=== PATIENT | male | born 1970 | race Two or more races ===

== ENCOUNTER 2024-11-05 12:21 | Emergency (ER) | payer SELFPAY ==
[2024-11-05 12:36] VITALS: BP 156/104; PULSE 154; RESP 24; TEMP 38.1; O2SAT 97
--- NOTE | 2024-11-05 12:46 | PD.EDMEDCL ---
ED Medical Clearance RME/HPI General Chief complaint: Medical Clearance Stated complaint: SNF CLEARANCE Time Seen by Provider: 11/05/24 12:25 Arrival date/time: 11/05/24 12:21 Mode of arrival: other ([facility] department) Limitations: language barrier and other (Agitation, refusal to answer questions) RME / HPI RME / HPI Narrative: 54-year-old male present via the [facility]'s department for a medical clearance due to a heart rate of 160 and a blood pressure of 186/120. These vital signs were obtained after a struggle with approximately 8 officers to get him into the booking area of the senior living. He denies taking any medications for his blood pressure. Apparently patient admitted to officers about his cocaine abuse however officers mention they also found methamphetamine. When asked if the patient has chest pain or shortness of breath, he refuses to answer. Related Information Allergies Allergy/AdvReac Type Severity Reaction Status Date / Time No Known Allergies Allergy Verified 11/05/24 12:28 Review of Systems Review of Systems Systems Reviewed: All systems reviewed, normal except as documented Past Medical History Past Medical History CARDIAC: Negative Congestive Heart Failure RESPIRATORY: Negative Chronic Obstructive Pulmonary Disease (COPD) GENITOURINARY: Negative Renal Disease ENDOCRINE: Negative Diabetes Mellitus Type 1 or Diabetes Mellitus Type 2 Social History SMOKING STATUS: Current some day smoker ED Exam Narrative Physical exam: Alert, agitated 54-year-old male, sitting in wheelchair with handcuffs behind his back as well as leg shackles. Appears disheveled and diaphoretic. Tachycardic at 154, blood pressure 156/104, respirations 24, temp 100.6, O2 sat 97% on room air. Lungs are clear General Limitations: Present language barrier and other (Agitation, refusal to answer questions) General appearance: Present alert Course Quality Measures none Orders Category Date Time Status Ship'S Pilot Q4H START 00 Care 11/05/24 13:04 Active LORazepam [Ativan Inj] Med 11/05/24 13:31 Discontinued 2 mg IM X1 ONE LORazepam [Ativan] Med 11/05/24 13:17 Discontinued 1 mg SL X1 ONE Vital Signs Vital signs: Vital Signs Temperature 100.6 F H 11/05/24 12:36 Pulse Rate 154 H 11/05/24 12:36 Respiratory Rate 24 H 11/05/24 12:36 Blood Pressure 156/104 H 11/05/24 12:36 Pulse Oximetry (%) 97 11/05/24 12:36 Oxygen Delivery Method Room Air 11/05/24 12:36 Medical Clearance Patient data External records reviewed:: None Clinical information provided by:: EMS Social determinants that could affect healthcare access:: substance use Patient has the following chronic illnesses:: Substance abuse disorder How is presenting disease/condition affected by chronic disease/condition?: caused by Evaluation data The following diagnostics were reviewed and interpreted by me:: other (specify) (vital signs) Lab and/or radiology exams considered but not ordered:: N/A Interpretation Summary: N/A Medications / Prescriptions Medications or Prescriptions considered but not ordered:: N/A Medication administrations:: Medication Administration History Discontinued Medications Lorazepam (Lorazepam 0.5 Mg Tablet) 1 mg SL X1 ONE Stop: 11/05/24 13:18 Last Admin: 11/05/24 13:41 Dose: Not Given Documented By: YOSEF Non-Admin Reason: Cancelled by Provider Lorazepam (Lorazepam 2 Mg/Ml Vial) 2 mg IM X1 ONE Stop: 11/05/24 13:32 Last Admin: 11/05/24 13:40 Dose: 2 mg Documented By: YOSEF Lorazepam Discharge Plan Plan Patient Disposition: Skilled Nursing/Court/Law Discharge Disposition comment: Stable and Improved Prescriptions/Referrals Referrals: No Primary/Family,Physician [Primary Care Provider] - In 1 week Problem List Clinical Impression: Substance abuse, daily use, Hypertension Patient/Caregiver Discharge Instructions Education Materials: ED Drug Abuse, ED High Blood Pressure ... Additional Instructions: Follow-up with senior living medical staff for treatment of your blood pressure while incarcerated. Print Language: Indonesian CHAYITO Supervising Physician CHAYITO Supervising Physician: Dr. ESTRADA
[2024-11-05 13:04] VITALS: BP 182/113; PULSE 129; RESP 18; O2SAT 93
[2024-11-05 13:06] VITALS: PULSE 128
[2024-11-05 13:18] VITALS: BMI 33.9
[2024-11-05] MEDS: LORazepam 2 MG/ML VIAL IM (13:40)
[2024-11-05 13:56] VITALS: BP 154/100; PULSE 109; RESP 18; TEMP 37.7; O2SAT 94
== END 2024-11-05 14:40 ==
PROVIDERS: Emergency Provider Emergency Medicine
DX: Z02.89 Encounter for other administrative examinations (principal); F19.10 Other psychoactive substance abuse, uncomplicated; I10 Essential (primary) hypertension
CPT/HCPCS: 96372; 99283; J2060